=== PATIENT | female | born 1955 | race Caucasian/White ===

== ENCOUNTER 2016-10-11 13:24 | Observation (INO) | payer OTHER ==
[2016-10-11] MEDS ORDERED: ASPIRIN 81 MG TABLET, CHEWABLE PO ONE (14:19)
--- NOTE | 2016-10-11 14:23 | ER Document Report ---
ED Cardiac - General Chief Complaint: Chest Pain Stated Complaint: CHEST PAIN Time Seen by Provider: 10/11/16 14:08 Mode of Arrival: Ambulatory Information source: Patient Notes: This is a 61-year-old female with a history of hypertension, COPD, right bundle branch block who presents to the emergency room with intermittent squeezing chest tightness which is been nonradiating. Patient states she has been experiencing this discomfort on and off for the past 3 days. Currently she is chest pain-free. TRAVEL OUTSIDE OF THE [place] IN LAST 30 DAYS: No - HPI Patient complains to provider of: Chest tightness Use of: denies: Alcohol, Amphetamines, Bath salts, Caffeine, Cocaine, Decongestants, Other Was the onset of pain: Gradual Quality of pain: Dull, Tightness Chest pain radiation location: None Severity now: None Severity at worst: Moderate Pain level currently: Denies Chest pain precipitating factors: At Rest Cardiac risk factors: Hypertension, Smoker Positive cardiac history: Yes Associated symptoms: Fatigue Exacerbated by: Denies Relieved by: Nothing Similar symptoms previously: No Recently seen / treated by doctor: No - Related Data Allergies/Adverse Reactions: No Known Allergies Allergy (Verified 10/11/16 13:46) Home Medications: Current Home Medications Albuterol Sulfate [Albuterol Sulfate 2.5mg/3 mL] 1 vial IH Q6HP PRN 10/11/16 [ History] Albuterol Sulfate [Proair HFA] 2 puff IH Q4HP PRN 10/11/16 [History] Amlodipine Besylate [Norvasc 2.5 mg Tablet] 2.5 mg PO Q12 10/11/16 [History] Budesonide/Formoterol Fumarate [Symbicort HFA 160-4.5 mcg Inhaler 6 gm] 1 puff IH BID 10/11/16 [History] Past Medical History - General Information source: Patient - Social History Smoking Status: Current Every Day Smoker Cigarette use (# per day): Yes - 1 pack per day Chew tobacco use (# tins/day): No Smoking Education Provided: No Frequency of alcohol use: None Drug Abuse: None Lives with: Family Family History: Reviewed & Not Pertinent Patient has suicidal ideation: No Patient has homicidal ideation: No - Past Medical History Cardiac Medical History: Reports: Hx Coronary Artery Disease - BY A DR. BRADSHAW CATH IN 1997. Renal/ Medical History: Denies: Hx Peritoneal Dialysis Past Surgical History: Reports: Hx Abdominal Surgery - Gastric Bypass (2008), Hx Cardiac Catheterization - [address]ADSHAW., Hx Cholecystectomy - 2011, Hx Gastric Bypass Surgery - 2007, Hx Hysterectomy - 1997 - Immunizations Hx Diphtheria, Pertussis, Tetanus Vaccination: Yes Review of Systems - Review of Systems Constitutional: No symptoms reported EENT: No symptoms reported Cardiovascular: See HPI Respiratory: No symptoms reported Gastrointestinal: No symptoms reported Genitourinary: No symptoms reported Female Genitourinary: No symptoms reported Musculoskeletal: No symptoms reported Skin: No symptoms reported Hematologic/Lymphatic: No symptoms reported Neurological/Psychological: No symptoms reported Physical Exam - Vital signs Vitals: Temp Pulse Resp BP Pulse Ox 97.7 F 56 L 20 114/66 96 10/11/16 13:46 10/11/16 13:46 10/11/16 13:46 10/11/16 13:46 10/11/16 13:46 Notes: Physical exam: GENERAL: A 61-year-old female, alert and oriented 3, no acute distress HEAD: Atraumatic, normocephalic. EYES: Pupils equal round and reactive to light, extraocular movements intact, sclera anicteric, conjunctiva are normal. ENT: TMs normal, nares patent, oropharynx clear without exudates. Moist mucous membranes. NECK: Normal range of motion, supple without lymphadenopathy or JVD. LUNGS: Breath sounds clear to auscultation bilaterally and equal. No wheezes rales or rhonchi. HEART: Regular rate and rhythm without murmurs, rubs or gallops. ABDOMEN: Soft, normoactive bowel sounds. No tenderness to palpation. No guarding, no rebound. No masses appreciated. EXTREMITIES: Normal range of motion, no pitting or edema. No clubbing or cyanosis. NEUROLOGICAL: Cranial nerves II through XII grossly intact. Normal speech, normal gait. PSYCH: Normal mood, normal affect. SKIN: Warm, Dry, normal turgor, no rashes or lesions noted. Course - Vital Signs Vital signs: Temp Pulse Resp BP Pulse Ox 97.6 F 55 L 20 116/64 97 10/11/16 19:00 10/11/16 19:00 10/11/16 19:00 10/11/16 19:00 10/11/16 19:00 - Laboratory Result Diagrams: 10/11/16 14:00 10/11/16 14:00 Laboratory results interpreted by me: 10/11/16 10/11/16 14:00 14:00 RDW 14.1 H Chloride 110 H Creatinine 0.46 L Glucose 74 L Calcium 10.7 H - Diagnostic Test Radiology reviewed: Image reviewed, Reports reviewed - X-ray shows no infiltrates - EKG Interpretation by Me Rate: Bradycardia Rhythm: NSR - EKG shows sinus bradycardia with a ventricular rate of 55, no acute ST-T wave changes Discharge - Discharge Clinical Impression: Chest pain Condition: Stable Disposition: ADMITTED OBSERVATION Admitting Provider: Cedric Steiner Unit Admitted: Telemetry
[2016-10-11 14:31] LABS: ABSOLUTE BASOPHILS # (AUTO) 0.1 10^3/uL (0.0-0.2); ABSOLUTE EOSINOPHILS # (AUTO) 0.3 10^3/uL (0.0-0.6); ABSOLUTE LYMPHOCYTES (AUTO) 1.7 10^3/uL (0.5-4.7); ABSOLUTE MONOCYTES (AUTO) 0.5 10^3/uL (0.1-1.4); ABSOLUTE NEUT (AUTO) 2.9 10^3/uL (1.7-8.2); BASOPHILS % (AUTO) 1.4 % (0-2); EOSINOPHILS % (AUTO) 4.7 % (0-6); HEMATOCRIT 45.3 % (36.0-47.0); HEMOGLOBIN 15.1 g/dL (12.0-15.5); LYMPHOCYTES % (AUTO) 30.8 % (13-45); MEAN CORPUSCULAR HEMOGLOBIN 30.2 pg (27.0-33.4); MEAN CORPUSCULAR HGB CONC 33.3 g/dL (32.0-36.0); MEAN CORPUSCULAR VOLUME 91 fl (80-97); MONOCYTES % (AUTO) 8.8 % (3-13); RED BLOOD COUNT 4.99 10^6/uL (3.72-5.28); RED CELL DISTRIBUTION WIDTH 14.1 % (11.5-14.0); SEGMENTED NEUTROPHILS % (AUTO) 54.3 % (42-78); WHITE BLOOD COUNT 5.4 10^3/uL (4.0-10.5)
--- NOTE | 2016-10-11 14:51 | RADIOLOGY REPORT (SQ) ---
EXAM DESCRIPTION: CHEST SINGLE VIEW COMPLETED DATE/TIME: 10/11/2016 2:30 pm REASON FOR STUDY: chest pain COMPARISON: 04/16/2014 EXAM PARAMETERS: NUMBER OF VIEWS: One view. TECHNIQUE: Single frontal radiographic view of the chest acquired. RADIATION DOSE: NA LIMITATIONS: None. FINDINGS: LUNGS AND PLEURA: No opacities, masses or pneumothorax. No pleural effusion. MEDIASTINUM AND HILAR STRUCTURES: No masses. Contour normal. HEART AND VASCULAR STRUCTURES: Heart normal in size. Normal vasculature. BONES: No acute findings. HARDWARE: None in the chest. OTHER: No other significant finding. IMPRESSION: NO ACUTE RADIOGRAPHIC FINDING IN THE CHEST. TECHNICAL DOCUMENTATION: JOB ID: [id number]
[2016-10-11 14:54] LABS: ALANINE AMINOTRANSFERASE 27 U/L (9-52); ALBUMIN 3.6 g/dL (3.5-5.0); ALKALINE PHOSPHATASE 102 U/L (38-126); ASPARTATE AMINO TRANSFERASE 29 U/L (14-36); BILIRUBIN,DIRECT 0.3 mg/dL (0.0-0.4); BILIRUBIN,TOTAL 0.5 mg/dL (0.2-1.3); BLOOD UREA NITROGEN 10 mg/dL (7-20); CALCIUM 10.7 mg/dL (8.4-10.2); CHLORIDE 110 mmol/L (98-107); CREATINE KINASE 49 U/L (30-135); CREATININE RESULT 0.46 mg/dL (0.52-1.25); GLUCOSE 74 mg/dL (75-110); POTASSIUM 4.5 mmol/L (3.6-5.0); TOTAL PROTEIN 6.5 g/dL (6.3-8.2)
[2016-10-11 15:04] LABS: CREATINE KINASE MB 1.88 ng/mL (<4.55)
[2016-10-11 15:05] LABS: TROPONIN I < 0.012 ng/mL
[2016-10-11 15:21] LABS: ANION GAP 5 (5-19); CARBON DIOXIDE 28 mmol/L (22-30); SODIUM 142.9 mmol/L (137-145)
[2016-10-11] MEDS ORDERED: ALBUTEROL SULFATE 0.042% NEB (1.25 MG/3 ML) AMPUL NEB PRN (17:12)
[2016-10-11] MEDS ORDERED: ALBUTEROL SULFATE 0.083% NEB 2.5 MG/3 ML AMPUL NEB ONE (18:00)
[2016-10-11] MEDS ORDERED: LANSOPRAZOLE 30 MG TAB.RAP.DR PO ONE (18:00)
[2016-10-11] MEDS ORDERED: LEVOFLOXACIN 500 MG TABLET PO SCH (18:00)
[2016-10-11] MEDS: PREDNISONE 20 MG TABLET PO SCH (19:29)
[2016-10-11] MEDS: HEPARIN SOD (PORCINE) 5,000 UNIT/ML 1 ML SYRINGE SUBCUT SCH (21:29)
[2016-10-11] MEDS: GUAIFENESIN 600 MG TABLET.SA PO SCH (21:29)
[2016-10-11] MEDS: BUDESONIDE/FORMOTEROL 160-4.5 MCG 60 PUFF/6 GM MDI IH SCH (21:29)
[2016-10-11] MEDS: AMLODIPINE BESYLATE 2.5 MG TABLET PO SCH (21:35)
[2016-10-11] MEDS ORDERED: ATORVASTATIN CALCIUM 40 MG TABLET PO SCH (22:00)
[2016-10-12] MEDS ORDERED: LANSOPRAZOLE 30 MG TAB.RAP.DR PO SCH (06:00)
[2016-10-12] MEDS: HEPARIN SOD (PORCINE) 5,000 UNIT/ML 1 ML SYRINGE SUBCUT SCH (06:33)
[2016-10-12 06:52] LABS: Direct HDL 72 mg/dL (>40); TRIGLYCERIDES 41 mg/dL (<150)
[2016-10-12 07:02] LABS: DIRECT LDL 43 mg/dL (<100)
--- NOTE | 2016-10-12 07:12 | HISTORY AND PHYSICAL E ---
History and Physical NAME: JAH BEE : 1955 AGE: 61Y ADMITTED: 10/11/2016 ROOM: 420 CHIEF COMPLAINT: Chest pain. HISTORY OF PRESENT ILLNESS: This patient is a 61-year-old female with a past medical history of tobacco dependency and chronic obstructive pulmonary disease. The patient presented to the emergency department with the chief complaint of chest pain. The patient states that she had been experiencing intermittent episodes of chest discomfort for the past three weeks associated with cough and green sputum production. However, today, the patient had a grabbing chest pain which radiated into her left shoulder. The patient was chest pain free spontaneously after presentation. According to the patient, she is followed by Dr. Wilson outpatient and the patient underwent cardiac catheterization two years ago and was not stented. The patient is unsure if she had clean coronaries; however, she does know that she had an area that was not large enough to need stent placement. The patient, since that time, has taken Norvasc and has not had anymore symptoms of chest pain since that time. The patient continues to smoke and has had increasing symptoms of COPD including inhalers, nebulizers, so forth. Upon presentation to the emergency department, the patient was noted to be normotensive, afebrile. EKG does not show any changes in comparison to previous EKG. She does have a right bundle branch block which is old and the patient was referred to the hospitalist for observation and management. PAST MEDICAL HISTORY: 1. Chronic obstructive pulmonary disease. 2. Tobacco dependency. 3. Previous history of obesity status post Main-en-Y. HOME MEDICATIONS: 1. Norvasc 5 mg p.o. b.i.d. 2. Advair 500/50 one puff inhalation q.12 h. 3. Multivitamin one tablet p.o. daily. 4. Albuterol nebulizer 0.83% one neb q.6 h p.r.n. PAST SURGICAL HISTORY: 1. Main-en-Y in 2007. 2. Cardiac catheterization in 04/2014. 3. Hysterectomy in 1997. 4. Cholecystectomy in 2011. SOCIAL HISTORY: The patient currently resides at home with her daughter who is also her surrogate decision maker. Her name is Lilliana Mckeon who may be reached at [phone]. The patient does have a history of tobacco dependency. She smokes one pack a day for which she has done for about 42 pack years. No history of alcohol abuse or illicit drug use. FAMILY MEDICAL HISTORY: The patient denies any family history of coronary artery disease. The patient does have two children both of which are healthy. No family history of strokes. REVIEW OF SYSTEMS: CONSTITUTIONAL: The patient denies any fevers, chills, dizziness or weakness, no loss of appetite. SKIN: The patient denies any diaphoresis, rashes or bruising. HEENT: Denies any vision changes, hearing loss, nasal drainage, sore throat, no headache. CARDIOVASCULAR: Denies any edema, heart palpitations, positive for chest pain. RESPIRATORY: Denies any hemoptysis and positive for intermittent shortness of breath, cough and green sputum production. GASTROINTESTINAL: No nausea, vomiting, diarrhea, abdominal pain, blood, hematemesis, constipation, melena, hematochezia, mid epigastric pain. GENITOURINARY: Denies any hematuria, polyuria or dysuria. MUSCULOSKELETAL: The patient denies any acute or chronic joint pain. NEUROLOGIC: Denies any loss of consciousness or seizure. HEMATOLOGICAL: Denies any tai bleeding, easy bruising. ENDOCRINE: Denies any recent weight changes. PSYCHIATRIC: Denies suicidal or homicidal ideation. The rest of review of the other organ systems negative. PHYSICAL EXAMINATION: On examination, the patient is a well-developed, well-nourished 61-year-old female who is awake, alert and oriented to person, place, time and situation. She is verbal conversational, ambulatory and does not appear to be in any acute distress. VITAL SIGNS FOLLOWS: Temperature is 97.7, pulse 58, respirations 20, blood pressure 110/62, oxygen saturation 98% on room air. SKIN: Warm and dry, no rashes, not diaphoretic. HEENT: Pupils equal, round and reactive to light and accommodation. Conjunctivae is pink. Sclerae is nonicteric. NECK: Supple with good dentition and no JVD. No palpable lymphadenopathy or thyromegaly. CARDIOVASCULAR: Heart is regular. There is no murmur or rub. CHEST: Clear and symmetrical. The patient does have expiratory wheezes diffusely throughout with some coarse lung sounds, symmetrical, nonlabored. ABDOMEN: Soft, nontender, nondistended, bowel sounds are present and no palpable organomegaly. BACK: No CVA tenderness or sacral edema. EXTREMITIES: No clubbing, cyanosis or edema. Peripheral signs of embolization. Posterior pedal pulses noted bilaterally. PSYCHIATRIC: Appropriate affect, pleasant mood. NEUROLOGIC: Cranial nerves 2 through 12 are grossly intact. DIAGNOSTICS: Lab values are as follows: Hematology done on 10/11/2016, WBCs are palpable at 4, hemoglobin is 15.1, hematocrit is 45.3, platelet count is 36,000. Chemistry panel on 10/11/2016, sodium is 142, potassium 4.5, chloride is 110, carbon dioxide 28, BUN 10, creatinine 0.46, glucose 34, calcium 10.7, bilirubin 0.5, AST 29, ALT 27, alkaline phosphatase 102. CK 49, CK-MB is 1.8, troponin 0.012. Total protein 6.5, albumin 3.6. Chest x-ray obtained on 10/11/2016, reveals no acute radiographic finding of the chest. EKG obtained on 10/11/2016, reveals a right bundle branch block. IMPRESSION AND PLAN: 1. CHEST PAIN. Given the patient's history, we will observe the patient on continuous telemetry and we will obtain serial cardiac enzymes and a repeat EKG. We will have lipid panel and we will discuss with the patient's skid adzer, Dr. Wilson. 2. HYPERTENSION. Blood pressures are in a good range. We will continue the patient's home medications. 3. HISTORY OF MAIN-EN-Y. The patient states that she has been having significant gas pains as well as symptoms of reflux. During the patient's previous workup, she did have a hiatal hernia. The patient has not had endoscopy in over five years from her surgery. This can be followed up on an outpatient basis; however, we will start the patient on PPI therapy and follow. 4. TOBACCO DEPENDENCE. Spent three minutes discussing smoking cessation and education and the patient declines any pharmacological intervention at this time; however, we will add a p.r.n. nicotine patch. 5. DVT PROPHYLAXIS. We will start the patient on subcu heparin. DISPOSITION: The patient is a full code. Pending the patient's symptomatology and diagnostic findings, we will reevaluate in the a.m. We will observe the patient on continuous telemetry as the patient's expected length of stay should not surpass 2 midnights. Time spent on this admission including assessment and plan, physical examination, patient education is 35 minutes. DICTATING PHYSICIAN: RENETTA CORDOBA NP [id number] Y#: [id number] ID: [id number] JOB#: [id number] ACCT: [id number] cc: > [facility]
[2016-10-12 07:56] VITALS: BP 111/52
[2016-10-12] MEDS ORDERED: ALBUTEROL SULFATE 0.083% NEB 2.5 MG/3 ML AMPUL NEB SCH (08:00)
--- NOTE | 2016-10-12 08:52 | EKG REPORT ---
SEVERITY:- OTHERWISE NORMAL ECG - SINUS RHYTHM LOW VOLTAGE IN FRONTAL LEADS : Confirmed by: Mikki Hogan 12-Oct-2016 08:51:54
--- NOTE | 2016-10-12 08:52 | EKG REPORT ---
SEVERITY:- OTHERWISE NORMAL ECG - SINUS BRADYCARDIA LOW VOLTAGE IN FRONTAL LEADS : Confirmed by: Mikki Hogan 12-Oct-2016 08:51:44
[2016-10-12] MEDS: GUAIFENESIN 600 MG TABLET.SA PO SCH (09:13)
[2016-10-12] MEDS: AMLODIPINE BESYLATE 2.5 MG TABLET PO SCH (09:13)
[2016-10-12] MEDS: BUDESONIDE/FORMOTEROL 160-4.5 MCG 60 PUFF/6 GM MDI IH SCH (09:14)
[2016-10-12] MEDS: PREDNISONE 20 MG TABLET PO SCH (09:14)
[2016-10-12] MEDS ORDERED: ASPIRIN 81 MG TABLET, CHEWABLE PO SCH (10:00)
--- NOTE | 2016-10-14 23:11 | DISCHARGE SUMMARY E ---
Discharge Summary NAME: JAH BEE : 1955 AGE: 61Y ADMITTED: 10/11/2016 DISCHARGED: 10/12/2016 CODE STATUS: Full code. PRIMARY CARE PROVIDER: Bravo Ellis in [place]. SAND MILL OPERATOR FACING SAND: Dr. Wilson DISCHARGE DIAGNOSES: 1. ACUTE BRONCHITIS. 2. CHRONIC OBSTRUCTIVE PULMONARY DISEASE. 3. CHEST PAIN SECONDARY TO ACUTE BRONCHITIS WHICH IS RESOLVED. 4. TOBACCO DEPENDENCY. DISCHARGE MEDICATIONS: 1. Prednisone 60 mg taper. 2. Levaquin 500 mg p.o. q.p.m. 3. Symbicort HFA 160/4.5 one puff inhalation b.i.d. 4. Norvasc 2.5 mg p.o. q.12 h. 5. ProAir HFA 2 puffs inhalation q.4 h p.r.n. 6. Albuterol nebs 2.5 one neb q.6 h p.r.n. 30 with two refills. DIAGNOSTICS: Lab values are as follows: Hematology obtained on 10/11/2016: WBC 5.4, hemoglobin 15.1, hematocrit 45.3, platelet count is 306,000. Chemistry obtained on 10/11/2016: Sodium is 142, potassium 4.5, chloride is 110, carbon dioxide 28, BUN 10, creatinine 0.46, glucose 94, calcium 10.7, bilirubin 0.5, AST 29, ALT 27, alkaline phosphatase 102, CK 49, CK-MB is 1.8 and troponin is 0.012. Total protein 6.5, albumin 3.6, triglycerides 41, cholesterol 144, LDL 43, VLDL is 8, HDL is 72. EKG obtained on 10/11/2016, reveals sinus rhythm. Chest x-ray obtained on 10/11/2016, reveals no acute radiographic finding of the chest. PHYSICAL EXAMINATION: On examination, the patient is a well-developed, well-nourished 61-year-old female who is awake, alert, oriented to person, place, time and situation and she is verbal and conversational and does not appear to be in any acute distress. VITAL SIGNS FOLLOWS: Temperature is 97.8, pulse 70, respirations 18, blood pressure 111/52, oxygen saturation 91% on room air. SKIN: Warm and dry, no rashes, not diaphoretic. HEENT: Pupils equal, round and reactive to light and accommodation. Conjunctivae pink, no JVP. CARDIOVASCULAR: Heart is regular without murmur or rub. CHEST: The patient does have some expiratory wheezes but overall improved in comparison to yesterday, symmetrical and labored. ABDOMEN: Soft, nontender, nondistended. BACK: No CVA tenderness EXTREMITIES: Without clubbing, cyanosis, or edema. PSYCHIATRIC: Appropriate affect, pleasant mood. HISTORY OF PRESENT ILLNESS: This patient is a 61-year-old female with a past medical history of tobacco dependence and COPD. The patient presented to the emergency department with the chief complaint of chest pain. The patient states that she had been experiencing intermittent episodes of chest discomfort for three weeks prior to presentation and she also noted cough with green sputum production however the day of presentation, the patient noted a grabbing chest pain which radiated in the left shoulder. The pain spontaneously resolved after presentation. According to the patient, she is followed by Dr. Wilson outpatient and underwent cardiac stress test two years prior but was not stented. The patient is unsure if she had clean coronaries; however, she does know the area was not large enough to need a stent. The patient since that time has taken Norvasc and has not had anymore symptoms so it sounds more consistent with coronary spasm. The patient continue to smoke and has increasing symptoms of COPD including inhalers, nebulizers and so forth. Upon presentation in the emergency department, the patient had normal cardiac enzymes and found to be normotensive and EKG did not show any changes and the patient was referred to the hospitalist for observation and management. HOSPITAL COURSE: The patient was observed on continues telemetry and serial cardiac enzymes were obtained all of which were nonsuggestive. The patient had no events on the lightout examiner and EKG revealed no changes. The patient was treated for bronchitis with antibiotic, nebulizers as well as inhalers with significant improvement in the patient's symptoms. The patient had no replication of the chest pain symptoms. I discussed the care with Dr. Wilson who is agreeable to see the patient on followup and the patient is quite ready for discharge. DISCHARGE PLAN: 1. The patient is advised to follow with primary care provider as needed. 2. The patient is to followup with her building analyst/supervisor, Dr. Wilson, within two weeks for hospital followup. Time spent on this discharge including assessment and plan, physical examination, patient education and family patient education is 25 minutes. DICTATING PHYSICIAN: RENETTA CORDOBA NP [id number] PHY#: [id number] ID: [id number] JOB#: [id number] ACCT: [id number] cc:RENETTA CORDOBA NP > [facility]
== END 2016-10-12 11:36 | disposition home or self-care (01) ==
LOC: ER 13:24 → UNDOADMOB 16:49 → EH 16:49 → 4W 17:56 → EH 17:56
DX: J44.0 Chronic obstructive pulmonary disease with (acute) lower respiratory infection (principal); J20.9 Acute bronchitis, unspecified; R07.89 Other chest pain; F17.210 Nicotine dependence, cigarettes, uncomplicated; I10 Essential (primary) hypertension; I45.10 Unspecified right bundle-branch block; R14.1 Gas pain; R19.8 Other specified symptoms and signs involving the digestive system and abdomen; Z79.51 Long term (current) use of inhaled steroids; Z79.899 Other long term (current) drug therapy; Z98.84 Bariatric surgery status; Z90.49 Acquired absence of other specified parts of digestive tract; Z90.710 Acquired absence of both cervix and uterus
CPT/HCPCS: 99285; 36415 ×2; 82553; 82550; 85025; 80053; 84484 ×2; 80061; 71010; 93005 ×2; 93010 ×2; 94640; G0378 ×3; J1644 ×2; J3490 ×3; J7512 ×2

== ENCOUNTER 2016-12-25 11:08 | Emergency (ER) | payer OTHER ==
[2016-12-25] MEDS ORDERED: NORMAL SALINE 1000 ML 1,000 ML IV ONE (12:35)
[2016-12-25] MEDS ORDERED: KETOROLAC TROMETHAMINE INJ/PF 30 MG/1 ML SDV IV ONE (12:35)
[2016-12-25] MEDS ORDERED: ONDANSETRON HCL INJ/PF 4 MG/2 ML SDV IV ONE (12:35)
--- NOTE | 2016-12-25 12:35 | ER Document Report ---
ED Medical Screen (RME) - General Chief Complaint: Dizziness Stated Complaint: DIZZINESS/BACK PAIN Time Seen by Provider: 12/25/16 12:16 Mode of Arrival: Wheelchair Information source: Patient Notes: 61 yr old female presents with complaints of urinary frequency, not feeling well. pt denies any vomiting. admits to nausea. Pt notes body aches and low grade fever I have greeted and performed a rapid initial assessment of this patient. A comprehensive ED assessment and evaluation of the patient, analysis of test results and completion of the medical decision making process will be conducted by additional ED providers. PHYSICAL EXAMINATION: GENERAL: Well-appearing, well-nourished and in no acute distress. HEAD: Atraumatic, normocephalic. EYES: Pupils equal round extraocular movements intact, conjunctiva are normal. ENT: Nares patent NECK: Normal range of motion LUNGS: No respiratory distress Musculoskeletal: Normal range of motion NEUROLOGICAL: Normal speech, normal gait. PSYCH: Normal mood, normal affect. SKIN: Warm, Dry, normal turgor, no rashes or lesions noted. TRAVEL OUTSIDE OF THE [place] IN LAST 30 DAYS: No - Related Data Allergies/Adverse Reactions: No Known Allergies Allergy (Verified 12/25/16 12:11) Home Medications: Current Home Medications Amlodipine Besylate [Norvasc 2.5 mg Tablet] 2.5 mg PO Q12 12/25/16 [History] Past Medical History - Social History Frequency of alcohol use: None Drug Abuse: Marijuana - Past Medical History Cardiac Medical History: Reports: Hx Coronary Artery Disease - BY A DR. BRADSHAW CATH IN 1997., Hx Hypertension Pulmonary Medical History: Reports: Hx COPD Renal/ Medical History: Denies: Hx Peritoneal Dialysis Past Surgical History: Reports: Hx Abdominal Surgery - Gastric Bypass (2008), Hx Cardiac Catheterization - [address]ADSHAW., Hx Cholecystectomy - 2011, Hx Gastric Bypass Surgery - 2007, Hx Hysterectomy - Immunizations Hx Diphtheria, Pertussis, Tetanus Vaccination: Yes Physical Exam - Vital signs Vitals: Temp Pulse Resp BP Pulse Ox 99.0 F 78 16 105/45 L 98 12/25/16 11:28 12/25/16 11:28 12/25/16 11:28 12/25/16 11:28 12/25/16 11:28 Course - Vital Signs Vital signs: Temp Pulse Resp BP Pulse Ox 99.0 F 78 16 105/45 L 98 12/25/16 11:28 12/25/16 11:28 12/25/16 11:28 12/25/16 11:28 12/25/16 11:28
[2016-12-25 13:19] LABS: ABSOLUTE LYMPHOCYTES (AUTO) 1.1 10^3/uL (0.5-4.7); ABSOLUTE NEUT (AUTO) 6.9 10^3/uL (1.7-8.2); BASOPHILS % (AUTO) 0.4 % (0-2); EOSINOPHILS % (AUTO) 0.2 % (0-6); HEMATOCRIT 51.9 % (36.0-47.0); HEMOGLOBIN 17.7 g/dL (12.0-15.5); HGB HCT DIFFERENCE 1.2; LYMPHOCYTES % (AUTO) 12.4 % (13-45); MEAN CORPUSCULAR HEMOGLOBIN 31.3 pg (27.0-33.4); MEAN CORPUSCULAR HGB CONC 34.1 g/dL (32.0-36.0); MEAN CORPUSCULAR VOLUME 92 fl (80-97); MONOCYTES % (AUTO) 10.6 % (3-13); RED BLOOD COUNT 5.65 10^6/uL (3.72-5.28); SEGMENTED NEUTROPHILS % (AUTO) 76.4 % (42-78); WHITE BLOOD COUNT 9.1 10^3/uL (4.0-10.5)
[2016-12-25] MEDS ORDERED: IPRATROPIUM/ALBUTEROL 0.5-2.5 MG/3 ML AMPUL NEB ONE (13:20)
--- NOTE | 2016-12-25 13:23 | ER Document Report ---
ED General - General Mode of Arrival: Wheelchair Information source: Patient TRAVEL OUTSIDE OF THE [place] IN LAST 30 DAYS: No - HPI Onset: Other - 2 days Associated symptoms: Other - see above <TEJAS SEE - Last Filed: 12/25/16 13:20> <GERHARD STEELE - Last Filed: 12/25/16 16:26> - General Chief Complaint: Dizziness Stated Complaint: DIZZINESS/BACK PAIN Time Seen by Provider: 12/25/16 12:16 Notes: Patient is a 61 year old female who presents to the ED with complaints of dysuria and burning with urination x2 days. Patient also has low back pain across her entire low back. Patient thinks she has a kidney infection. Patient also adds dizziness and worse than baseline SOB that is worse at night time. Patient also has body aches and a low grade fever (100.5). Patient is nauseous but has not had any vomiting (TEJAS SEE) - Related Data Allergies/Adverse Reactions: No Known Allergies Allergy (Verified 12/25/16 12:11) Home Medications: Current Home Medications Amlodipine Besylate [Norvasc 2.5 mg Tablet] 2.5 mg PO Q12 12/25/16 [History] Past Medical History - General Information source: Patient - Social History Smoking Status: Current Every Day Smoker Frequency of alcohol use: None Drug Abuse: Marijuana Family History: Reviewed & Not Pertinent Patient has suicidal ideation: No Patient has homicidal ideation: No - Past Medical History Cardiac Medical History: Reports: Hx Coronary Artery Disease - BY A DR. BRADSHAW CATH IN 1997., Hx Hypertension Pulmonary Medical History: Reports: Hx COPD Renal/ Medical History: Denies: Hx Peritoneal Dialysis Past Surgical History: Reports: Hx Abdominal Surgery - Gastric Bypass (2008), Hx Cardiac Catheterization - [address] BRADSHAW., Hx Cholecystectomy - 2011, Hx Gastric Bypass Surgery - 2007, Hx Hysterectomy - Immunizations Hx Diphtheria, Pertussis, Tetanus Vaccination: Yes <TEJAS SEE - Last Filed: 12/25/16 13:20> Review of Systems - Review of Systems Constitutional: See HPI, Fever EENT: No symptoms reported Cardiovascular: See HPI, Dizziness Respiratory: See HPI, Short of breath Gastrointestinal: See HPI, Nausea. denies: Vomiting Genitourinary: See HPI, Burning, Dysuria Female Genitourinary: No symptoms reported Musculoskeletal: See HPI, Back pain Skin: No symptoms reported Hematologic/Lymphatic: No symptoms reported Neurological/Psychological: No symptoms reported <ESATEJAS - Last Filed: 12/25/16 13:20> Physical Exam - General General appearance: Appears well, Alert In distress: None - HEENT Head: Normocephalic, Atraumatic Eyes: Normal Extraocular movements intact: Yes Pupils: PERRL - Respiratory Respiratory status: Tachypnea Breath sounds: Wheezing - Cardiovascular Rhythm: Regular Heart sounds: Normal auscultation Murmur: No - Abdominal Inspection: Obese Distension: No distension Bowel sounds: Normal Tenderness: Nontender - Back Back: Tender - lower lumbar tenderness to palpation. No: CVA tenderness - Extremities General upper extremity: Normal inspection, Normal ROM General lower extremity: Normal inspection, Normal ROM. No: Edema - Neurological Neuro grossly intact: Yes - Psychological Associated symptoms: Normal affect, Normal mood - Skin Skin Temperature: Warm Skin Moisture: Dry Skin Color: Normal <ESATEJAS - Last Filed: 12/25/16 13:20> Course - Laboratory Result Diagrams: 12/25/16 13:00 12/25/16 13:00 <ESAGALOTEJAS - Last Filed: 12/25/16 13:20> - Laboratory Result Diagrams: 12/25/16 13:00 12/25/16 13:48 <GERHARD STEELE - Last Filed: 12/25/16 16:26> - Vital Signs Vital signs: Temp Pulse Resp BP Pulse Ox 99.0 F 78 16 105/45 L 98 12/25/16 11:28 12/25/16 11:28 12/25/16 11:28 12/25/16 11:28 12/25/16 11:28 - Laboratory Laboratory results interpreted by me: 12/25/16 12/25/16 12/25/16 13:00 13:10 13:48 RBC 5.65 H Hgb 17.7 H Hct 51.9 H Plt Count 144 L Lymphocytes % 12.4 L Sodium 132.8 L Calcium 10.6 H Total Protein 6.1 L Albumin 3.4 L Urine Protein 30 H Urine Ketones 20 H Urine Blood MODERATE H Urine Urobilinogen 2.0 H Ur Leukocyte Esterase LARGE H Discharge <TEJAS SEE - Last Filed: 12/25/16 13:20> <GERHARD STEELE - Last Filed: 12/25/16 16:26> - Discharge Clinical Impression: Urinary tract infection Qualifiers: Urinary tract infection type: site unspecified Hematuria presence: with hematuria Qualified Code(s): N39.0 - Urinary tract infection, site not specified Low back pain Qualifiers: Chronicity: unspecified Back pain laterality: unspecified Sciatica presence: without sciatica Qualified Code(s): M54.5 - Low back pain COPD (chronic obstructive pulmonary disease) Qualifiers: COPD type: unspecified COPD Qualified Code(s): J44.9 - Chronic obstructive pulmonary disease, unspecified Condition: Stable Disposition: HOME, SELF-CARE Additional Instructions: Urinary Tract Infection: Your evaluation indicates that you have a urinary tract infection. This is due to germs growing in the bladder. This is a common problem. This infection usually responds quickly to antibiotics. Your antibiotic should be taken exactly as prescribed. Drink plenty of fluids -- three to four quarts a day. Occasionally, a bladder anesthetic will be prescribed to help stop the feeling of urgency until the antibiotic has a chance to clear the infection. This may cause your urine to be dark orange. Certain urine infections require a culture. If the doctor obtained a culture, the results will be back in two days. You should call to see if a change in treatment is needed. A repeat urinalysis after you finish treatment is often recommended. The physician will let you know if further testing is required. Call the doctor if you develop fever, chills, flank pain, inability to urinate, or blood in the urine. TAKE THE MEDICATION PRESCRIBED FO THE URINE INFECTION. DRINK PLENTY OF FLUIDS. USE THE INHALER PRESCRIBED FOR WHEEZING AND SHORTNESS OF BREATH. STOP SMOKING. REST. TAKE TYLENOL FOR PAIN IF NEEDED. FOLLOW UP WITH YOUR DOCTOR IF NOT IMPROVING. RETURN TO THE EMERGENCY ROOM IF ANY NEW OR WORSENING SYMPTOMS. Prescriptions: Albuterol Sulfate [Proair HFA] 1 - 2 puff IH Q4 PRN #1 inhaler PRN Reason: Doxycycline Hyclate 100 mg PO BID #14 tablet Forms: Return to Work Referrals: AARON BRAVO PA-C [Primary Care Provider] - Follow up as needed Scribe Attestation: 12/25/16 16:18 I personally performed the services described in the documentation, reviewed and edited the documentation which was dictated to the scribe in my presence, and it accurately records my words and actions. (GERHARD STEELE) Scribe Documentation - Scribe Written by Basia:: basia Johansen, 12/25/2016, 1323 acting as scribe for :: Jason <TEJAS SEE - Last Filed: 12/25/16 13:20>
[2016-12-25 13:46] LABS: AMORPHOUS SEDIMENT,URINE TRACE /HPF; APPEARANCE,URINE CLOUDY; BILIRUBIN,URINE NEGATIVE (NEGATIVE); GLUCOSE, URINE NEGATIVE (NEGATIVE); KETONES,URINE 20 mg/dL (NEGATIVE); LEUKOCYTE ESTERASE,URINE LARGE (NEGATIVE); NITRITE,URINE NEGATIVE (NEGATIVE); PROTEIN,URINE 30 mg/dL (NEGATIVE); URINE SPECIFIC GRAVITY 1.012
[2016-12-25] MEDS ORDERED: CEFTRIAXONE 1 GM/D5W RTU 50 ML IV ONE (13:59)
[2016-12-25] MEDS ORDERED: RINGERS SOLUTION,LACTATED 1,000 ML IV ONE (14:00)
[2016-12-25 14:29] LABS: ALANINE AMINOTRANSFERASE 33 U/L (9-52); ALBUMIN 3.4 g/dL (3.5-5.0); ALKALINE PHOSPHATASE 91 U/L (38-126); ANION GAP 6 (5-19); ASPARTATE AMINO TRANSFERASE 22 U/L (14-36); BILIRUBIN,DIRECT 0.4 mg/dL (0.0-0.4); BILIRUBIN,TOTAL 1.2 mg/dL (0.2-1.3); BLOOD UREA NITROGEN 11 mg/dL (7-20); CALCIUM 10.6 mg/dL (8.4-10.2); CARBON DIOXIDE 26 mmol/L (22-30); CHLORIDE 101 mmol/L (98-107); CREATININE RESULT 0.57 mg/dL (0.52-1.25); GLUCOSE 98 mg/dL (75-110); LIPASE 39.5 U/L (23-300); POTASSIUM 3.9 mmol/L (3.6-5.0); SODIUM 132.8 mmol/L (137-145); TOTAL PROTEIN 6.1 g/dL (6.3-8.2)
[2016-12-25 16:52] VITALS: BP 108/74
== END 2016-12-25 16:51 | disposition home or self-care (01) ==
LOC: ER 11:08
DX: N39.0 Urinary tract infection, site not specified (principal); M54.5 Low back pain; R42 Dizziness and giddiness; J44.9 Chronic obstructive pulmonary disease, unspecified; F17.200 Nicotine dependence, unspecified, uncomplicated; I25.10 Atherosclerotic heart disease of native coronary artery without angina pectoris; Z98.84 Bariatric surgery status; Z90.49 Acquired absence of other specified parts of digestive tract; Z90.710 Acquired absence of both cervix and uterus
CPT/HCPCS: 94640; 99284; 96375; 96365; 96368; 36415; 87086; 83690; 85025; 87088; 80053; 81001; 87186; J1885; J2405; J7030; J7120; J0696; J7620

== ENCOUNTER 2017-03-30 23:24 | Emergency (ER) | payer OTHER ==
[2017-03-31] MEDS ORDERED: HYDROCODONE/ACETAMINOPHEN 5-325 MG 6 TAB/DSPK PO PRN (01:20)
[2017-03-31] MEDS ORDERED: SULFAMETHOXAZOLE/TRIMETHOPRIM 800-160 MG TABLET PO ONE (01:20)
[2017-03-31] MEDS ORDERED: CEPHALEXIN 500 MG CAPSULE PO ONE (01:20)
--- NOTE | 2017-03-31 01:22 | ER Document Report ---
ED Skin Rash/Insect Bite/Abscs - General Chief Complaint: Insect Bite Stated Complaint: INSECT BITE Time Seen by Provider: 03/31/17 01:09 Notes: Patient is a 61-year-old female comes emergency department for chief complaint of an area on her left calf that is tender, red, and swollen. She states that about 5 days ago she awoke from sleep and noticed a gucci which was itchy on her leg, she states there were 2 yang which looked like fang yang/bite yang and she believes this was a spider bite. She states the area blistered and the top layer skin fell off. She states she has scratch the area and has become increasingly red and is uncomfortable. She denies fever or chills, she denies nausea or vomiting, she denies history of diabetes. TRAVEL OUTSIDE OF THE [place] IN LAST 30 DAYS: No - Related Data Allergies/Adverse Reactions: No Known Allergies Allergy (Verified 12/25/16 12:11) Past Medical History - General Information source: Patient - Social History Smoking Status: Never Smoker Frequency of alcohol use: None Drug Abuse: None Lives with: Family Family History: Reviewed & Not Pertinent - Past Medical History Cardiac Medical History: Reports: Hx Coronary Artery Disease - BY A DR. BRADSHAW CATH IN 1997., Hx Hypertension Pulmonary Medical History: Reports: Hx COPD Renal/ Medical History: Denies: Hx Peritoneal Dialysis Past Surgical History: Reports: Hx Abdominal Surgery - Gastric Bypass (2008), Hx Cardiac Catheterization - [address] BRADSHAW., Hx Cholecystectomy - 2011, Hx Gastric Bypass Surgery - 2007, Hx Hysterectomy - Immunizations Hx Diphtheria, Pertussis, Tetanus Vaccination: Yes Physical Exam - Vital signs Vitals: Temp Pulse Resp BP Pulse Ox 98.2 F 67 22 H 132/82 H 94 03/30/17 23:40 03/30/17 23:40 03/30/17 23:40 03/30/17 23:40 03/30/17 23:40 Interpretation: Normal - General General appearance: Appears well, Alert - HEENT Head: Normocephalic, Atraumatic Eyes: Normal Conjunctiva: Normal Extraocular movements intact: Yes Eyelashes: Normal Pupils: PERRL Ears: Normal Sinus: Normal Nasal: Other - Right nasal passage with erythema near the opening, small visible fluctuant head noted, minimal swelling to the nare. Normal ENT exam otherwise Pharynx: Normal Neck: Normal - Respiratory Respiratory status: No respiratory distress Chest status: Nontender Breath sounds: Normal Chest palpation: Normal - Cardiovascular Rhythm: Regular Heart sounds: Normal auscultation Murmur: No - Abdominal Inspection: Normal Distension: No distension Bowel sounds: Normal Tenderness: Nontender Organomegaly: No organomegaly - Back Back: Normal, Nontender - Extremities General upper extremity: Normal inspection, Nontender, Normal color, Normal ROM , Normal temperature General lower extremity: Normal inspection, Nontender, Normal color, Normal ROM , Normal temperature, Normal weight bearing. No: Agustín's sign - Neurological Neuro grossly intact: Yes Cognition: Normal Orientation: AAOx4 Joe Coma Scale Eye Opening: Spontaneous Joe Coma Scale Verbal: Oriented Garrett Coma Scale Motor: Obeys Commands Joe Coma Scale Total: 15 Speech: Normal Motor strength normal: LUE, RUE, LLE, RLE Sensory: Normal - Psychological Associated symptoms: Normal affect, Normal mood - Skin Skin Temperature: Warm Skin Moisture: Dry Skin Color: Normal Skin irregularity: other - there is a small flap of superficial skin missing from the left mid calf which appears to have either sloughed off or been scratched off, there is no induration or fluctuance, there is erythema and warmth extending away from this in an oval shape. No streaking redness away from the area, able to bear weight on the area without any difficulty. No purulent drainage. Course - Re-evaluation Re-evalutation: Left calf area consistent with cellulitis, there is a small flap of skin missing which appears to have either sloughed off or been scratched off, there is no induration or fluctuance, there is erythema and warmth extending away from this in an oval shape. No streaking redness away from the area, able to bear weight on the area without any difficulty. No purulent drainage. No evidence of necrotizing fasciitis. Patient also has a small abscess on the inside of her right nasal passage over the lateral aspect near the opening, this was drained using an 18-gauge needle with small amount of purulent expression. Patient was placed on Keflex and Bactrim for cellulitis and the cellulitis around the abscess in the nose. She is afebrile, well-appearing, no tachycardia, she is not diabetic. Discussed follow-up recommendations and return precautions. Patient states satisfaction and agreement. - Vital Signs Vital signs: Temp Pulse Resp BP Pulse Ox 98.0 F 68 18 135/65 H 96 03/31/17 02:01 03/31/17 02:01 03/31/17 02:01 03/31/17 02:01 03/31/17 02:01 Procedures - Incision and Drainage right nasal passage Type: Single I&D procedure: Shurclens applied - surgical cleanser Incision Method: Incision made with needle Amount/type of drainage: small amount of blood and purulent material Discharge - Discharge Clinical Impression: Skin infection Cellulitis Qualifiers: Site of cellulitis: unspecified site Qualified Code(s): L03.90 - Cellulitis, unspecified Condition: Stable Disposition: HOME, SELF-CARE Additional Instructions: Leg examination is consistent with cellulitis, and infection of the skin. Nasal examination consistent with a small abscess and surrounding cellulitis. I recommend cleaning out your nose with Q-tips, keep absorbent dressing over the leg wound, take the antibiotics as prescribed, take the stool softener if you take the pain medicine to avoid constipation. Follow-up with primary care. Return if you worsen in any way including spreading redness, fever, or any other concerning symptoms. Prescriptions: Cephalexin Monohydrate [Keflex 500 mg Capsule] 500 mg PO QID #28 capsule Docusate Sodium [Colace 100 mg Capsule] 100 mg PO ASDIR PRN #30 capsule PRN Reason: Hydrocodone/Acetaminophen [[place] 5-325 mg Tablet] 1 - 2 tab PO ASDIR #10 tablet Sulfamethoxazole/Trimethoprim [Bactrim Ds Tablet] 1 each PO BID #14 tablet
[2017-03-31 02:02] VITALS: BP 135/65
== END 2017-03-31 02:02 | disposition home or self-care (01) ==
LOC: ER 23:24
PROC: 099KXZZ Drainage of Nasal Mucosa and Soft Tissue, External Approach (ICD-10-PCS; principal; 2017-03-30)
DX: J32.8 Other chronic sinusitis (principal); L03.116 Cellulitis of left lower limb; I10 Essential (primary) hypertension; J44.9 Chronic obstructive pulmonary disease, unspecified; Z98.84 Bariatric surgery status; Z90.49 Acquired absence of other specified parts of digestive tract; Z90.710 Acquired absence of both cervix and uterus
CPT/HCPCS: 99283

== ENCOUNTER 2018-10-07 06:27 | Observation (INO) | payer OTHER ==
[2018-10-07] MEDS ORDERED: NITROGLYCERIN 0.4 MG/TAB 25 TAB/BOTTLE SL ONE (07:10)
--- NOTE | 2018-10-07 07:40 | EKG REPORT ---
SEVERITY:- ABNORMAL ECG - SINUS RHYTHM RIGHT BUNDLE BRANCH BLOCK : Confirmed by: Anette Knox MD 07-Oct-2018 07:40:06
[2018-10-07 07:43] LABS: ABSOLUTE BASOPHILS # (AUTO) 0.1 10^3/uL (0.0-0.2); ABSOLUTE EOSINOPHILS # (AUTO) 0.2 10^3/uL (0.0-0.6); ABSOLUTE LYMPHOCYTES (AUTO) 1.5 10^3/uL (0.5-4.7); ABSOLUTE MONOCYTES (AUTO) 0.5 10^3/uL (0.1-1.4); ABSOLUTE NEUT (AUTO) 6.3 10^3/uL (1.7-8.2); EOSINOPHILS % (AUTO) 2.8 % (0-6); HEMATOCRIT 45.7 % (36.0-47.0); HEMOGLOBIN 15.5 g/dL (12.0-15.5); LYMPHOCYTES % (AUTO) 17.4 % (13-45); MEAN CORPUSCULAR HEMOGLOBIN 30.7 pg (27.0-33.4); MEAN CORPUSCULAR HGB CONC 33.9 g/dL (32.0-36.0); MEAN CORPUSCULAR VOLUME 91 fl (80-97); MONOCYTES % (AUTO) 5.8 % (3-13); PLATELET COUNT 193 10^3/uL (150-450); RED BLOOD COUNT 5.04 10^6/uL (3.72-5.28); RED CELL DISTRIBUTION WIDTH 13.9 % (11.5-14.0); TOTAL CELLS COUNTED % (AUTO) 100 %; WHITE BLOOD COUNT 8.6 10^3/uL (4.0-10.5)
--- NOTE | 2018-10-07 07:54 | RADIOLOGY REPORT (SQ) ---
EXAM DESCRIPTION: X-ray single view chest. CLINICAL HISTORY: 63 years Female, chest pain COMPARISON: 04/16/2014 TECHNIQUE: Single portable x-ray view of the chest performed on 10/07/2018 at 7:23 AM FINDINGS: The lungs are well expanded and are clear. There is no evidence of a pneumothorax. The cardiac silhouette is normal in size and configuration. The mediastinal contours are normal. No acute osseous abnormality is identified. No focal soft tissue abnormalities are seen. Lines and tubes: None. IMPRESSION: No evidence of acute intrathoracic disease.
[2018-10-07 08:12] LABS: ALANINE AMINOTRANSFERASE 30 U/L (9-52); ALBUMIN 3.5 g/dL (3.5-5.0); ALKALINE PHOSPHATASE 122 U/L (38-126); ANION GAP 5 (5-19); ASPARTATE AMINO TRANSFERASE 27 U/L (14-36); BILIRUBIN,DIRECT 0.3 mg/dL (0.0-0.4); BILIRUBIN,TOTAL 0.5 mg/dL (0.2-1.3); BLOOD UREA NITROGEN 14 mg/dL (7-20); CALCIUM 10.8 mg/dL (8.4-10.2); CARBON DIOXIDE 29 mmol/L (22-30); CHLORIDE 108 mmol/L (98-107); CREATINE KINASE 52 U/L (30-135); GLUCOSE 89 mg/dL (75-110); POTASSIUM 4.5 mmol/L (3.6-5.0); SODIUM 142.4 mmol/L (137-145); TOTAL PROTEIN 6.1 g/dL (6.3-8.2)
[2018-10-07 08:24] LABS: CREATINE KINASE MB 2.05 ng/mL (<4.55)
[2018-10-07 08:26] LABS: TROPONIN I < 0.012 ng/mL
--- NOTE | 2018-10-07 10:23 | ER Document Report ---
ED General - General Chief Complaint: Chest Pain Stated Complaint: CHEST PAIN Time Seen by Provider: 10/07/18 07:01 Primary Care Provider: AARON BRAVO PA-C [Primary Care Provider] - Follow up as needed TRAVEL OUTSIDE OF THE [place] IN LAST 30 DAYS: No - HPI Notes: Patient is a 63-year-old female who presents emergency department for evaluation of chest pain she points to her substernal area states it radiates into her right chest, as well as her back, and the right side of her neck. It started about a half an hour prior to arrival. She states she did feel somewhat short of breath and nauseated at onset. At the beginning of her pain was a 10 out of 10. She was at work. She now currently states is a 3 out of 10. She has had pain similar to this in the past. She states she was sent to violent and found to have a "small blockage." She states they did not have to place a stent at that time. She does admit that since then she has not been compliant with med ications. She weaned herself off of them, cannot really tell me what they were. - Related Data Allergies/Adverse Reactions: No Known Allergies Allergy (Verified 12/25/16 12:11) Past Medical History - General Information source: Patient - Social History Smoking Status: Current Every Day Smoker Chew tobacco use (# tins/day): No Frequency of alcohol use: None Drug Abuse: Marijuana Family History: Reviewed & Not Pertinent, CAD, Hypertension Patient has suicidal ideation: No Patient has homicidal ideation: No - Past Medical History Cardiac Medical History: Reports: Hx Coronary Artery Disease - BY A DR. BRADSHAW CATH IN 1997., Hx Hypertension Pulmonary Medical History: Reports: Hx COPD Renal/ Medical History: Denies: Hx Peritoneal Dialysis Past Surgical History: Reports: Hx Abdominal Surgery - Gastric Bypass (2008), Hx Cardiac Catheterization - [address]ADSHAW., Hx Cholecystectomy - 2011, Hx Gastric Bypass Surgery - 2007, Hx Hysterectomy - Immunizations Hx Diphtheria, Pertussis, Tetanus Vaccination: Yes Review of Systems - Review of Systems Constitutional: No symptoms reported EENT: No symptoms reported Cardiovascular: See HPI Respiratory: No symptoms reported Gastrointestinal: No symptoms reported Genitourinary: No symptoms reported Musculoskeletal: No symptoms reported Neurological/Psychological: No symptoms reported Physical Exam - Vital signs Vitals: Temp Pulse Resp BP Pulse Ox 97.6 F 58 L 17 142/67 H 97 10/07/18 06:29 10/07/18 06:29 10/07/18 06:29 10/07/18 06:29 10/07/18 06:29 - Notes Notes: Vital signs reviewed, please refer to chart. Head is normocephalic, atraumatic. Pupils equal round, reactive to light. Neck is supple without meningismus. Heart is regular rate and rhythm. Lungs feel occasional expiratory wheezes throughout but no rales or rhonchi are noted.. Abdomen is soft, nontender, normoactive bowel sounds throughout. Extremities without cyanosis, clubbing. Posterior calves are nontender. Peripheral pulses are equal. Skin is warm and dry. Patient is awake, alert, neurological exam is nonfocal. Course - Re-evaluation Re-evalutation: 10/07/18 10:25 Patient presents emergency department for evaluation. She is a 63-year-old smoker with a known history of coronary artery disease, noncompliant with medication, who presents to the emergency department for evaluation of chest pain. Initially she told me her chest pain was a 3 out of 10. Nitroglycerin was ordered. By the time the nurse went to administer it, the patient was chest pain-free. She had taken an adult size aspirin prior to arrival here. Patient resting comfortably, first troponin was negative. I discussed findings with patient. I explained to her that my inclination would be to keep her in the hospital. She objects to this, states she has to work tonight. I told her to rest, we would draw a second troponin. She remains chest pain-free, will continue to follow. 10/07/18 11:12 Patient remains chest pain-free. Second set is negative. At this point, I am concerned about this patient. She is 63 years old. She is noncompliant. She continues to smoke. She has a known history of coronary artery disease, and actually required intervention when her symptoms were similar. She has seen Dr. Knox in the past. At first the patient was resistant to the idea of st aying. I will go ahead and contact medicine, she is now amenable to the plan. She Benitez received aspirin. She did not receive nitroglycerin as she was already chest pain-free. Nitropaste ordered. 05/28/19 11:[address] Bee, he accepted the patient. He asked that I contact Dr. Hamilton. Call pending at this time. - Vital Signs Vital signs: Temp Pulse Resp BP Pulse Ox 97.6 F 58 L 19 131/80 H 95 10/07/18 06:29 10/07/18 06:29 10/07/18 11:01 10/07/18 11:01 10/07/18 11:01 - Laboratory Result Diagrams: 10/07/18 07:30 10/07/18 07:30 Laboratory results interpreted by me: 10/07/18 07:30 Chloride 108 H Creatinine 0.49 L Calcium 10.8 H Total Protein 6.1 L - Diagnostic Test Radiology reviewed: Reports reviewed Radiology results interpreted by me: 10/07/18 10:28 Chest X-Ray 10/07/18 07:10 IMPRESSION: No evidence of acute intrathoracic disease. - EKG Interpretation by Me Additional EKG results interpreted by me: 10/07/18 10:28 Sinus bradycardia with a rate of 56 bpm. Left axis deviation. Right bundle branch block. No old studies available for comparison. Discharge - Discharge Clinical Impression: Chest pain Condition: Stable Disposition: ADMITTED OBSERVATION Admitting Provider: Joy (Hospitalist) Unit Admitted: Telemetry Referrals: AARON BRAVO PA-C [Primary Care Provider] - Follow up as needed
[2018-10-07] MEDS ORDERED: NITROGLYCERIN 2% OINTMENT 1 GM PACKET TP ONE (11:16)
[2018-10-07] MEDS ORDERED: IPRATROPIUM/ALBUTEROL 0.5-2.5 MG/3 ML AMPUL NEB ONE (11:20)
[2018-10-07] MEDS ORDERED: DEXTROSE 50%-WATER 25 GM/50 ML DISP.SYRIN IV PRN ×2 (13:27)
[2018-10-07] MEDS ORDERED: GLUCAGON,HUMAN RECOMB 1 MG INJ SUBCUT PRN (13:27)
[2018-10-07] MEDS ORDERED: DEXTROSE 40% GEL 15 GM TUBE PO PRN ×2 (13:27)
--- NOTE | 2018-10-07 18:32 | PDOC H&P ---
History of Present Illness Admission Date/PCP: 10/07/18 11:25 AARON BRAVO PA-C History of Present Illness: JAH BEE is a 63 year old female who smokes approximately 1.5 packs of cigarettes a day and has a history of coronary artery disease but has not been taking her medications nor has she followed up with a physician in at least a year. She says her last cardiac evaluation of any sort was when she had her heart cath about 3 years ago. 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 She said it radiated to her neck. It felt like a pressure. It lasted for a little while, she is not sure how long, but her coworkers told her to come to the emergency department. She was pain-free here and first 2 troponins were negative. Past Medical History Cardiac Medical History: Reports: Coronary Artery Disease - BY A DR. BRADSHAW CATH IN 1997., Hypertension Pulmonary Medical History: Reports: Chronic Obstructive Pulmonary Disease (COPD) Psychiatric Medical History: Denies: Depression Past Surgical History Past Surgical History: Reports: Cardiac Catheterization - [address] BRADSHAW., Cholecystectomy - 2011, Gastric Bypass Surgery - 2007, Hysterectomy Social History Smoking Status: Current Every Day Smoker Cigarettes Packs Per Day: 1 Number of Years Smokin Frequency of Alcohol Use: None Hx Recreational Drug Use: No Drugs: Marijuana Hx Prescription Drug Abuse: No Family History Family History: Reviewed & Not Pertinent, CAD, Hypertension Parental Family History Reviewed: Yes - Hypertension, coronary artery disease Children Family History Reviewed: Yes Sibling(s) Family History Reviewed.: Yes - Hypertension Medication/Allergy Home Medications: Cyanocobalamin (Vitamin B-12) [Vitamin B12] 5,000 mcg PO QHS 10/07/18 Multivitamin [One-A-Day Essential] 1 each PO QHS 10/07/18 Allergies/Adverse Reactions: No Known Allergies Allergy (Verified 12/25/16 12:11) Review of Systems All systems: reviewed and no additional remarkable complaints except as stated - All systems were reviewed and were negative except as noted in the HPI Physical Exam Vital Signs: Temp Pulse Resp BP Pulse Ox 97.8 F 75 16 131/55 H 97 10/07/18 16:00 10/07/18 16:00 10/07/18 16:00 10/07/18 16:00 10/07/18 16:00 Intake & Output 10/06/18 10/07/18 10/08/18 06:59 06:59 06:59 Intake Total 600 Balance 600 Weight 79.379 kg General appearance: PRESENT: no acute distress, cooperative, disheveled, obese Head exam: PRESENT: atraumatic, normocephalic Eye exam: PRESENT: EOMI, PERRLA. ABSENT: conjunctival injection, nystagmus, scleral icterus Ear exam: PRESENT: normal external ear exam Mouth exam: PRESENT: moist, neck supple Throat exam: ABSENT: post pharyngeal erythema Neck exam: PRESENT: full ROM. ABSENT: carotid bruit, JVD, lymphadenopathy, meningismus, tenderness, thyromegaly Respiratory exam: PRESENT: clear to auscultation caesar, symmetrical, unlabored. ABSENT: accessory muscle use, chest wall tenderness, crackles, prolonged expiratory phas, rhonchi, tachypnea, wheezes Cardiovascular exam: PRESENT: RRR, +S1, +S2. ABSENT: diastolic murmur, systolic murmur Pulses: PRESENT: normal carotid pulses Vascular exam: PRESENT: normal capillary refill GI/Abdominal exam: PRESENT: normal bowel sounds, soft. ABSENT: distended, guarding, rebound, tenderness Extremities exam: ABSENT: clubbing, pedal edema Musculoskeletal exam: PRESENT: normal inspection. ABSENT: deformity Neurological exam: PRESENT: alert, awake, oriented to person, oriented to place, oriented to time, oriented to situation, CN II-XII grossly intact. ABSENT: motor sensory deficit Psychiatric exam: PRESENT: appropriate affect, normal mood Skin exam: PRESENT: dry, warm Results Laboratory Results: 10/07/18 07:30 10/07/18 07:30 10/07/18 10/07/18 07:30 07:30 WBC 8.6 RBC 5.04 Hgb 15.5 Hct 45.7 MCV 91 MCH 30.7 MCHC 33.9 RDW 13.9 Plt Count 193 Seg Neutrophils % 73.0 Lymphocytes % 17.4 Monocytes % 5.8 Eosinophils % 2.8 Basophils % 1.0 Absolute Neutrophils 6.3 Absolute Lymphocytes 1.5 Absolute Monocytes 0.5 Absolute Eosinophils 0.2 Absolute Basophils 0.1 Sodium 142.4 Potassium 4.5 Chloride 108 H Carbon Dioxide 29 Anion Gap 5 BUN 14 Creatinine 0.49 L Est GFR ( Amer) > 60 Est GFR (Non-Af Amer) > 60 Glucose 89 Calcium 10.8 H Total Bilirubin 0.5 AST 27 ALT 30 Alkaline Phosphatase 122 Total Protein 6.1 L Albumin 3.5 10/07/18 10/07/18 10/07/18 07:30 07:30 10:20 Creatine Kinase 52 CK-MB (CK-2) 2.05 Troponin I < 0.012 < 0.012 10/07/18 16:05 Creatine Kinase CK-MB (CK-2) Troponin I < 0.012 Impressions: Chest X-Ray 10/07/18 07:10 IMPRESSION: No evidence of acute intrathoracic disease. Assessment and Plan - Diagnosis (1) Chest pain Qualifiers: Chest pain type: chest pain due to myocardial ischemia Ischemic chest pain type: stable angina pectoris Qualified Code(s): I20.8 - Other forms of angina pectoris Is this a current diagnosis for this admission?: Yes Plan: Chest pain on exertion in a patient with a history of coronary artery disease and medication noncompliance who continues to smoke a pack and a half of cigarettes a day. We will trend her troponins to rule her out for an acute MO. If she rules out and is pain-free, will get a stress test tomorrow morning. Strongly urged medication compliance and smoking cessation. - Time Time Spent with patient: 70 minutes Time Spent with patient: 35 or more minutes
[2018-10-07] MEDS ORDERED: ASPIRIN 81 MG TABLET, CHEWABLE PO SCH (22:00)
[2018-10-07] MEDS ORDERED: ATORVASTATIN CALCIUM 80 MG TABLET PO SCH (22:00)
[2018-10-08] MEDS: LEVALBUTEROL HCL NEB 0.63 MG/3 ML AMPUL NEB PRN ×2 (02:01→07:00)
[2018-10-08 06:14] LABS: BLOOD UREA NITROGEN 13 mg/dL (7-20); CARBON DIOXIDE 26 mmol/L (22-30); CHOLESTEROL 135.91 mg/dL (0-200); GLUCOSE 83 mg/dL (75-110); POTASSIUM 4.6 mmol/L (3.6-5.0); TRIGLYCERIDES 69 mg/dL (<150)
[2018-10-08 06:20] LABS: CHLORIDE 112 mmol/L (98-107); SODIUM 140.1 mmol/L (137-145)
[2018-10-08 06:24] LABS: DIRECT LDL 66 mg/dL (<100)
[2018-10-08 06:25] LABS: ANION GAP 2 (5-19)
[2018-10-08] MEDS ORDERED: REGADENOSON INJ 0.4 MG/5 ML DISP.SYRIN IV ONE (12:35)
[2018-10-08 15:43] VITALS: BP 131/55
--- NOTE | 2018-10-08 21:29 | DRAGON STRESS TEST REPORT ---
Intravenous Lexiscan Cardiolite stress test using single photon emmision computerized tomography. Date of procedure: 10/08/2018. Ordering Provider: Dr. Hamilton. Patient's status: In Patient Indication: Chest pain. Coronary risk factors: Age, dyslipidemia, tobacco abuse disorder, and family history of coronary artery disease. Resting EKG: Sinus Rhythm. Right bundle branch block pattern. Stress EKG: No changes of ischemia. The patient had no chest pain or discomfort, and there were no arrhythmias seen. Reason for termination: Protocol. Conclusions: Normal EKG and hemodynamic response to IV Lexiscan. Nuclear data: At rest the patient was given 12.37 millicuries of technetium 99m sestamibi injected intravenously. As per protocol rest non gated SPECT images were obtained. Subsequently the patient was given intravenous Lexiscan at a dose of 0.4 mg in 5 mL intravenously, followed by flush with normal saline. Subsequently the stress dose of 36.9 millicuries of technetium 99m sestamibi was injected intravenously. As per protocol stress gated images were obtained. Nuclear interpretation: Review of images showed that all segments of the myocardium had normal perfusion at rest, and normal perfusion post stress with IV Lexiscan. All segments of the myocardium had normal motion, contraction, and thickening by gated study. T. I D. ratio was normal at 0.98. There is no transient ischemic dilatation of the left ventricle. Computer read rest, and stress left ventricular ejection fraction were 78 %, and 76 %, respectively. Conclusion: 1. There is no scintigraphic evidence of Lexiscan induced myocardial ischemia. 2. There is no scintigraphic evidence of myocardial infarction/scar. Recommendations: Aggressive risk factor modification, and treating the underlying co- morbidities. MTDD
== END 2018-10-08 16:20 | disposition home or self-care (01) ==
LOC: ER 06:27 → EH 11:25 → 5 13:15
PROVIDERS: ADMIT Family Medicine; ATTEND Family Medicine
DX: I25.118 Atherosclerotic heart disease of native coronary artery with other forms of angina pectoris (principal); Z91.19 Patient's noncompliance with other medical treatment and regimen; F17.210 Nicotine dependence, cigarettes, uncomplicated; I45.10 Unspecified right bundle-branch block; F12.10 Cannabis abuse, uncomplicated; R00.1 Bradycardia, unspecified; R06.02 Shortness of breath; R11.0 Nausea; Z95.5 Presence of coronary angioplasty implant and graft; Z90.49 Acquired absence of other specified parts of digestive tract; Z98.84 Bariatric surgery status; Z82.49 Family history of ischemic heart disease and other diseases of the circulatory system
CPT/HCPCS: 93005; 94640 ×2; 99285; 36415 ×2; 82553; 82550; 85025; 80048; 80053; 84484; 83036; 80061; 93017; 71045; 78452; 93010; A9500; J2785; J3490; J7614; J7620; Q9969

== ENCOUNTER 2019-06-03 02:23 | Emergency (ER) | payer OTHER ==
[2019-06-03] MEDS ORDERED: ACETAMINOPHEN 325 MG TABLET PO ONE (03:13)
--- NOTE | 2019-06-03 03:13 | ER Document Report ---
HPI - HPI Time Seen by Provider: 06/03/19 03:06 Pain Level: 5 Context: Patient is a 63-year-old female that comes emergency department for chief complaint of a fall, she states she slipped on water at work and landed mainly on her left wrist, she also came down on her right knee. She denies any other areas of injury. She is not on a blood thinner. She denies head injury. She denies any other complaints. Past medical history of COPD. - CONSTITUTIONAL Constitutional: DENIES: Fever, Chills - REPRODUCTIVE Reproductive: DENIES: : - MUSCULOSKELETAL Musculoskeletal: REPORTS: Extremity pain Past Medical History - General Information source: Patient - Social History Smoking Status: Current Every Day Smoker Frequency of alcohol use: None Drug Abuse: None Lives with: Alone Family History: Reviewed & Not Pertinent, CAD, Hypertension Patient has suicidal ideation: No Patient has homicidal ideation: No - Past Medical History Cardiac Medical History: Reports: Hx Coronary Artery Disease - BY A DR. BRADSHAW CATH IN 1997., Hx Hypertension Pulmonary Medical History: Reports: Hx COPD Renal/ Medical History: Denies: Hx Peritoneal Dialysis Psychiatric Medical History: Denies: Hx Depression Past Surgical History: Reports: Hx Abdominal Surgery - Gastric Bypass (2008), Hx Cardiac Catheterization - [address]ADSHAW., Hx Cholecystectomy - 2011, Hx Gastric Bypass Surgery - 2007, Hx Hysterectomy - Immunizations Hx Diphtheria, Pertussis, Tetanus Vaccination: Yes Vertical Provider Document - CONSTITUTIONAL General Appearance: WD/WN, No Apparent Distress - INFECTION CONTROL TRAVEL OUTSIDE OF THE [place] IN LAST 30 DAYS: No - HEENT HEENT: Atraumatic, Normocephalic - NECK Neck: Normal Inspection - RESPIRATORY Respiratory: Breath Sounds Normal, No Respiratory Distress, Chest Non-Tender - CARDIOVASCULAR Cardiovascular: Regular Rate, Regular Rhythm - GI/ABDOMEN Gastrointestinal: Abdomen Soft, Abdomen Non-Tender - BACK Back: Normal Inspection - MUSCULOSKELETAL/EXTREMETIES Musculoskeletal/Extremeties: MAEW, FROM, Tender - Mild tenderness over the left elbow and proximal forearm without swelling. Normal range of motion of the elbo w and shoulder. Soft tissue swelling and tenderness over the left wrist generally. Pain with moving the wrist at all. Cap refill and sensation intact. Radial pulse intact. Right knee has some very mild generalized tenderness over the anterior aspect but no signs of trauma and normal range of motion. Ambulates without difficulty. Unremarkable otherwise. - NEURO Level of Consciousness: Awake, Alert, Appropriate Motor/Sensory: No Motor Deficit, No Sensory Deficit - DERM Integumentary: Warm, Dry, No Rash Course - Re-evaluation Re-evalutation: Patient with swelling of the left wrist but normal distal neurovascular exam, normal radial pulse. There are no other signs of trauma, she is reporting pain over the right knee, x-ray was negative. Patient alert, oriented. X-ray of the left wrist does show fractures of the distal ulna and radius with minimal angulation of the radius. Discussed with Dr. Webb. Discussed with patient, patient placed in sugar tong immobilization, provided with symptom management, discussed importance of orthopedic follow-up, discussed return precautions. Patient states she will follow-up with orthopedics and return if she worsens in any way. - Vital Signs Vital signs: Temp Pulse Resp BP Pulse Ox 97.2 F 58 L 18 140/73 H 97 06/03/19 02:42 06/03/19 02:42 06/03/19 02:42 06/03/19 02:42 06/03/19 02:42 Procedures - Immobilization Left wrist Pre-Proc Neuro Vasc Exam: Normal Immobilizer type: Sugar tong Performed by: PCT Post-Proc Neuro Vasc Exam: Normal Alignment checked and good: Yes Discharge - Discharge Clinical Impression: Left wrist fracture Qualifiers: Encounter type: initial encounter Fracture type: closed Qualified Code(s): S62.102A - Fracture of unspecified carpal bone, left wrist, initial encounter for closed fracture Right knee pain Qualifiers: Chronicity: acute Qualified Code(s): M25.561 - Pain in right knee Fall Qualifiers: Encounter type: initial encounter Qualified Code(s): W19.XXXA - Unspecified fall, initial encounter Condition: Stable Disposition: HOME, SELF-CARE Additional Instructions: You have fractures in the bones of your forearm at the wrist. Wear the splint, take the pain medication as prescribed, please follow-up closely with the orthopedics referral for additional management. Call today with the referral listed below to set up your appointment. Return if you worsen for any concerning symptoms including severe swelling or pain. Prescriptions: Oxycodone HCl/Acetaminophen [Percocet 5-325 mg Tablet] 1 - 2 tab PO TID PRN #15 tablet PRN Reason: Forms: Return to Work Referrals: TIFFANI GOLDMAN MD [ACTIVE STAFF] - Follow up tomorrow
--- NOTE | 2019-06-03 04:08 | RADIOLOGY REPORT (SQ) ---
EXAM DESCRIPTION: XR ELBOW 1-2 VIEWS COMPLETED DATE/TME: 06/03/2019 03:12 CLINICAL HISTORY: 63 years, Female, fall, pain COMPARISON: None. FINDINGS: 3 views of the left elbow. Osteopenia. No definite joint effusion. No acute fracture identified. IMPRESSION: 1. No acute fracture or dislocation. copyright 2010 [employer]- All Rights Reserved
--- NOTE | 2019-06-03 04:08 | RADIOLOGY REPORT (SQ) ---
EXAM DESCRIPTION: XR KNEE 4 OR MORE VIEWS COMPLETED DATE/TME: 06/03/2019 03:12 CLINICAL HISTORY: 63 years, Female, fall, pain COMPARISON: None. FINDINGS: 4 views of the right knee. 3 compartment joint space narrowing and marginal osteophytosis. Osteopenia. No definite joint effusion. No acute fracture or dislocation. IMPRESSION: 1. No acute fracture or dislocation. copyright 2010 [employer]- All Rights Reserved
--- NOTE | 2019-06-03 04:09 | RADIOLOGY REPORT (SQ) ---
EXAM DESCRIPTION: XR WRIST 3 OR MORE VIEWS COMPLETED DATE/TME: 06/03/2019 03:12 CLINICAL HISTORY: 63 years, Female, fall, pain COMPARISON: None. FINDINGS: 3 views of the left wrist. Acute fracture of the distal left radial metaphysis with mild dorsal angulation. Nondisplaced ulnar styloid fracture. Osteopenia. Degenerative change of the first carpometacarpal joint. Mild widening of the scapholunate interval. IMPRESSION: 1. Acute fracture of the distal left radial metaphysis with mild dorsal angulation. 2. Nondisplaced ulnar styloid fracture. copyright 2010 [employer]- All Rights Reserved
[2019-06-03] MEDS ORDERED: HYDROCODONE/ACETAMINOPHEN 5-325 MG (6 TAB/ER DISP) PO PRN (05:04)
[2019-06-03 06:33] VITALS: BP 133/68
== END 2019-06-03 06:27 | disposition home or self-care (01) ==
LOC: ER 02:23
DX: S62.102A Fracture of unspecified carpal bone, left wrist, initial encounter for closed fracture (principal); S52.615A Nondisplaced fracture of left ulna styloid process, initial encounter for closed fracture; S52.592A Other fractures of lower end of left radius, initial encounter for closed fracture; M25.561 Pain in right knee; W01.0XXA Fall on same level from slipping, tripping and stumbling without subsequent striking against object, initial encounter; Y99.0 Civilian activity done for income or pay; J44.9 Chronic obstructive pulmonary disease, unspecified; F17.200 Nicotine dependence, unspecified, uncomplicated; I25.10 Atherosclerotic heart disease of native coronary artery without angina pectoris; I10 Essential (primary) hypertension; Z98.84 Bariatric surgery status
CPT/HCPCS: 99283